=== PATIENT | female | born 1930 | race Caucasian/White ===

== ENCOUNTER 2019-12-29 11:49 | Emergency (ER) | payer OTHER ==
[~2019-12-29] VITALS: Ht 162.6 cm; Wt 60.0 kg
--- NOTE | 2019-12-29 11:51 | NUR ---
PATIENT STATES FOR PAST FEW DAYS SHE HAS WOKE UP WITH BLOOD IN MOUTH AND BLEEDING FROM MOUTH.
[2019-12-29] MEDS ORDERED: PANT40TA5 PO (12:07)
[2019-12-29] MEDS ORDERED: AMLO-150 PO (12:07)
[2019-12-29] MEDS ORDERED: PSYL0.5215 PO (12:07)
[2019-12-29] MEDS ORDERED: METO-93 PO (12:07)
[2019-12-29] MEDS ORDERED: ASPI-496 PO (12:07)
[2019-12-29] MEDS ORDERED: LOSA100T2 PO (12:07)
[2019-12-29] MEDS ORDERED: LEVE250T5 PO (12:07)
--- NOTE | 2019-12-29 12:36 | NUR ---
patient also added that recently she has had three falls and thinks she broke a rib, but then states she is suppose to wear a tlso brace but that she can't wear it long.
[2019-12-29 12:42] LABS: BASOPHILS # (AUTO) 0.02 x10^3/uL (0-0.1); BASOPHILS % (AUTO) 0 % (0-1); EOSINOPHILS # (AUTO) 0.08 x10^3/uL (0-0.4); EOSINOPHILS % (AUTO) 2 % (1-7); LYMPHOCYTES # (AUTO) 0.98 x10^3/uL (1-3.4); LYMPHOCYTES % (AUTO) 18 % (22-44); MD NO; MEAN CORPUSCULAR HGB CONC 33.4 g/dL (32.4-35.8); MEAN PLATELET VOLUME 7.4 fL (7.4-10.4); MONOCYTES # (AUTO) 0.29 x10^3/uL (0.2-0.8); MONOCYTES % (AUTO) 5 % (2-9); NEUTROPHILS # (AUTO) 3.95 x10^3/uL (1.8-6.8); NEUTROPHILS % (AUTO) 74 % (42-75); PLATELET COUNT 231 x10^3/uL (130-400); RED BLOOD COUNT 3.81 x10^6/uL (3.82-5.3); RED CELL DISTRIBUTION WIDTH 13.4 % (9.6-15.2)
[2019-12-29 12:54] LABS: CHLORIDE 101 mmol/L (98-107)
[2019-12-29 13:00] LABS: ALANINE AMINOTRANSFERASE 16 U/L (12-78); ALBUMIN 3.7 g/dL (3.4-5.0); ALKALINE PHOSPHATASE 72 U/L (45-117); ANION GAP 3 mmol/L (5-15); BILIRUBIN,TOTAL 0.6 mg/dL (0.2-1.0); CALCIUM 9.2 mg/dL (8.5-10.1); CREATININE 0.73 mg/dL (0.55-1.02); TOTAL PROTEIN 6.5 g/dL (6.4-8.2)
--- NOTE | 2019-12-29 13:36 | NUR ---
helped patient to bathroom, needs stand by assistance.
--- NOTE | 2019-12-29 13:49 | NUR ---
Break RN note: Pt resting in bed, requesting food.
--- NOTE | 2019-12-29 14:16 | NUR ---
Break RN note: Pt advised that we are awaiting the result of the CTA prior to pt eating.
[2019-12-29] MEDS ORDERED: OMNIPAQUE 350 MG/ML, 75ML BOTTLE ONE (15:22)
--- NOTE | 2019-12-29 16:04 | NUR ---
helped patietn get to bathroom. no complications. got her a warm blanket. awaiting admission
[2019-12-29] MEDS ORDERED: MELO7.5T31 PO (17:54)
[2019-12-29] MEDS ORDERED: GABA100C PO (17:54)
[2019-12-29] MEDS ORDERED: DOCU-131 PO (17:54)
--- NOTE | 2019-12-29 18:02 | NUR ---
got patient to bathroom. she was hungry got her water and applesauce. she is on monitor and rails up, and awaiting admission.
[2019-12-29] MEDS ORDERED: MELATONIN 5 MG TABLET PO PRN (18:30)
[2019-12-29] MEDS ORDERED: HEPARIN 5,000 UNITS/ML, 1ML SQ SCH (18:30)
[2019-12-29] MEDS ORDERED: ACETAMINOPHEN 325 MG TABLET PO PRN (18:30)
[2019-12-29] MEDS ORDERED: ONDANSETRON 2MG/ML, 2ML IVPush PRN (18:30)
[2019-12-29] MEDS ORDERED: POTASSIUM CHLORIDE 20 MEQ TAB.ER.PRT PO SCH (18:30)
[2019-12-29] MEDS ORDERED: ONDANSETRON ODT 4 MG PO PRN (18:30)
--- NOTE | 2019-12-29 18:34 | NUR ---
MRI called and they are 20 minutes out. they need order to read with and without contrast, will let md know
[2019-12-29 18:47] LABS: INTERNATIONAL NORMALIZED RATIO 1.01 (0.93-1.1); PROTHROMBIN TIME 10.4 Seconds (9.6-11.5)
--- NOTE | 2019-12-29 19:13 | NUR ---
Traveled to [facility] with field support technician
[2019-12-29] MEDS ORDERED: GADOTERATE 7.5 MMOL/15 ML VIAL ONE (19:34)
--- NOTE | 2019-12-29 20:48 | NUR ---
Pt insists on ambulating to bathroom independently, refuses assistance from this RN. Teaching provided re: use of bathroom call vazquez and railings. This RN staying within immediate vicinity of bathroom
--- NOTE | 2019-12-29 20:51 | NUR ---
Son called for ride home. D/c discussed with son
[2019-12-29 20:59] VITALS: BP 141/97
[2019-12-30] MEDS ORDERED: METOPROLOL SUCCINATE 50 MG TAB.ER.24H PO SCH (09:00)
[2019-12-30] MEDS ORDERED: TEMPLATE NON-FORMULARY MED. (Meloxicam** 7.5 MG) PO SCH (09:00)
[2019-12-30] MEDS ORDERED: DOCUSATE 100 MG CAPSULE PO SCH (09:00)
[2019-12-30] MEDS ORDERED: LOSARTAN 100 MG TAB PO SCH (09:00)
[2019-12-30] MEDS ORDERED: GABAPENTIN 100 MG CAPSULE PO SCH (09:00)
[2019-12-30] MEDS ORDERED: PANTOPRAZOLE 40MG TABLET PO SCH (09:00)
[2019-12-30] MEDS ORDERED: ASPIRIN 81 MG TABLET EC PO SCH (09:00)
[2019-12-30] MEDS ORDERED: LEVETIRACETAM 250 MG PO SCH (09:00)
[2019-12-30] MEDS ORDERED: TEMPLATE NON-FORMULARY MED. (Psyllium Husk** (Metamucil**) 0.52 GM) PO SCH (09:00)
[2019-12-30] MEDS ORDERED: AMLODIPINE 5 MG TABLET PO SCH (09:00)
== END 2019-12-29 22:26 | disposition home or self-care (01) ==
LOC: ED 15:44 → SUATTDRO 16:59 → ED 18:20 → UNDOADMIN 18:30 → EDIP 18:30 → ED 22:26
PROVIDERS: ATTEND Internal Medicine
DX: K92.0 Hematemesis (principal); R06.02 Shortness of breath; I10 Essential (primary) hypertension; E78.5 Hyperlipidemia, unspecified; G43.909 Migraine, unspecified, not intractable, without status migrainosus; K21.9 Gastro-esophageal reflux disease without esophagitis
CPT/HCPCS: 36415; 70553; 71101; 71275; 80053; 83735; 84100; 85025; 85379; 85610; 99285; Q9967